=== PATIENT | male | born 1970 | race Caucasian/White ===

== ENCOUNTER 2017-04-17 18:13 | Emergency (ER) | payer BC ==
[~2017-04-17] VITALS: Ht 190.5 cm; Wt 108.0 kg
[~2017-04-17 18:13] MED LIST: LOVA20TA PO; LURA40 PO; METF1000 PO; OMEP20TA93 PO; TRAZ1TAB14 PO
[2017-04-17 18:34] VITALS: BP 116/62; PULSE 56; RESP 17; TEMP 98.8; O2SAT 95
--- NOTE | 2017-04-17 19:51 | PD ---
HPI Chief Complaint: Psychiatric Symptoms Time Seen by Provider: 19:49 Travel History International Travel<30 days: No Contact w/Intl Traveler<30days: No Traveled to known affect area: No History of Present Illness HPI 46-year-old male presents to emergency department as a transfer from [facility] under Shine act for psychological evaluation. The patient admits to feeling depressed and suicidal. His attempted overdose. The patient here has no medical complaints now. PFSH Past Medical History Asthma: No Bipolar Disorder: Yes Depression: Yes COPD: No Diabetes: Yes (TYPE 1) Respiratory: No Immunizations Current: Yes ?: Not Past Surgical History Appendectomy: Yes Social History Alcohol Use: Yes (OCC) Tobacco Use: Yes (1 PPD) Substance Use: Yes (USED CRACK YESTERDAY) Allergies-Medications (Allergen,Severity, Reaction): Coded Allergies: No Known Allergies (Verified Allergy, Mild, 04/17/17) Reported Meds & Prescriptions Reported Meds & Active Scripts Active Reported Lovastatin 20 Mg Tab 20 Mg PO DAILY Omeprazole 20 Mg Tab 20 Mg PO DAILY Latuda (Lurasidone) 40 Mg Tab 40 Mg PO DAILY Trazodone (Trazodone HCl) 150 Mg Tablet 150 Mg PO HS Metformin (Metformin HCl) 1,000 Mg Tab 1,000 Mg PO DAILY With a meal Review of Systems General / Constitutional: No: Fever Eyes: No: Visual changes HENT: No: Headaches Cardiovascular: No: Chest Pain or Discomfort Respiratory: No: Shortness of Breath Gastrointestinal: No: Abdominal Pain Genitourinary: No: Dysuria Musculoskeletal: No: Pain Skin: No Rash Neurologic: No: Weakness Psychiatric: Positive: Depression, Suicidal Ideations, Mood Disorder, Substance Abuse, No: Anxiety, Disorder of Thought, Homicidal Ideation Endocrine: No: Polydipsia Hematologic/Lymphatic: No: Easy Bruising Physical Exam Narrative GENERAL: Well-nourished, well-developed patient. Patient is resting comfortable in examination room. SKIN: Warm and dry. HEAD: Normocephalic and atraumatic. EYES: No scleral icterus. No injection or drainage. ENT: No nasal drainage noted. Mucous membranes pink. Airway patent. NECK: Supple, trachea midline. Moves head freely without obvious discomfort. CARDIOVASCULAR: Regular rate and rhythm without murmurs, gallops, or rubs. RESPIRATORY: Breath sounds equal bilaterally. No accessory muscle use. GASTROINTESTINAL: Abdomen soft, non-tender, nondistended. EXTREMITIES: No cyanosis or edema. BACK: Nontender without obvious deformity. No CVA tenderness. NEURO: Patient is alert and oriented. no sensorimotor deficits. Nonfocal. Normal speech. PSYCH: No delusions. No auditory or visual hallucinations. Data Data Last Documented VS Vital Signs Date Time Temp Pulse Resp B/P (MAP) Pulse Ox O2 Delivery O2 Flow Rate FiO2 04/17/17 18:34 98.8 56 17 116/62 (80) 95 Orders Orders Psych Screen (04/17/17 19:37) MDM Medical Decision Making Medical Screen Exam Complete: Yes Emergency Medical Condition: Yes Medical Record Reviewed: Yes Interpretation(s) Patient's laboratory tests have been reviewed Differential Diagnosis MDM: High Differential diagnoses: Schizophrenia, schizoaffective disorder, bipolar, anxiety, depression, adjustment reaction, mood disorder NOS, ODD, depressive disorder NOS, dementia, dementia with agitation, psychosis NOS, substance induced mood disorder, DMDD, Asperger syndrome, infection,electrolyte abnormality, malingering. Narrative Course Mental health screening discussed with the patient. Psychiatric screen ordered. The patient's medically cleared. This is medical clearance for psychiatric admission Diagnosis Primary Impression: Medical clearance for psychiatric admission Condition: Stable Yair Leary Apr 17, 2017 19:51
[2017-04-18 06:18] VITALS: BP 113/57; PULSE 73; RESP 18; O2SAT 97
--- NOTE | 2017-04-18 11:41 | PD ---
History of Present Illness Chief Complaint: Psychiatric Symptoms Time Seen by Provider: 11:20 Travel History International Travel<30 Days: No Contact w/Intl Traveler<30days: No Known affected area: No Legal Status Legal Status: Shine Act Shine Act Signed By: DR. BERNA MD [facility] [id number] Shine Act Comment: 04/17/2017 2644 History of Present Illness: History of Present Illness HPI 46-year-old , , male with history of depression, remote hx of substance use who presents to emergency department as a transfer from [facility] under Shine act. The patient had a relapse and used cocaine, alcohol and marijuana and later felt increased depressed and attempted to overdose on his prescribed medication in front of his . She took the pills out of his hand. The patient admits to feeling increasingly depressed over the past week coinciding with his relapse and use of substances. He also reports increase of stressors including that his son, his daughter in law and their six year old child has been staying with them. No other stressors are identified. He has one previous suicide attempt by overdose approximately ten years ago. Patient is alert, oriented. He is calm and cooperative. Speech is clear. There is no indication of psychosis, no chapo. Reports he is sleeping well, has good appetite, inadequate level of energy. Patient acknowledges recent relapse and the effects of the of the use of cocaine. He denies current suicidal or homicidal ideation, intent, or plan. He has seen a therapist and plans on making an appointment if he were discharged from the emergency department. He reports medication compliance. Telephone call to patient's Soila at [phone].. She is aware of her 's recent relapse and use of both cocaine as well as alcohol. She has no concerns if he were to be discharged and will pick him up. PFSH Past Medical History Asthma: No Bipolar Disorder: Yes Depression: Yes COPD: No Diabetes: Yes (TYPE 1) Respiratory: No Immunizations Current: Yes ?: Not Past Surgical History Appendectomy: Yes Psychiatric History Psychiatric History Hx Psychiatric Treatment: Patient with a hx of depression. One previous sucide attempt in [address] Steven as outpatietn provider. Also sees a therapist on a consistent basis for the last 2 years. History of Inpatient Treatment: Yes (last psychiatric hospitalization in 2003) Guns or firearms in home: No Social History Born and raised in [place]. Move to [place] in 1997. He is and lives with his all 25-year-old son, the son is and their 6-year-old child. 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 Hx Alcohol Use: Yes (OCC) Hx Tobacco Use: Yes (1 PPD) Hx Substance Use: Yes (crack) Substance Use Type: Marijuana, Nicotine/Cigarettes, Cocaine Other Substances Used: occ. alcohol, 1 ppd Hx of Substance Use Treatment: No Family Psychiatric History Negative Allergies-Medications (Allergen,Severity, Reaction): Coded Allergies: No Known Allergies (Verified Allergy, Mild, 04/17/17) Reported Meds & Prescriptions Reported Meds & Active Scripts Active Reported Lovastatin 20 Mg Tab 20 Mg PO DAILY Omeprazole 20 Mg Tab 20 Mg PO DAILY Latuda (Lurasidone) 40 Mg Tab 40 Mg PO DAILY Trazodone (Trazodone HCl) 150 Mg Tablet 150 Mg PO HS Metformin (Metformin HCl) 1,000 Mg Tab 1,000 Mg PO DAILY With a meal Review of Systems Psychiatric: COMPLAINS OF: Depression Except as stated in HPI: all other systems reviewed are Neg Mental Status Examination Appearance: Appropriate Consciousness: Alert Orientation: x4 Motor Activity: Normal gait Speech: Unremarkable Language: Adequate Fund of Knowledge: Adequate Attention and Concentration: Adequate Memory: Unremarkable Mood: Appropriate Affect: Appropriate Thought Process & Associations: Intact, Logical, Goal directed Thought Content: Appropriate Hallucination Type: None Delusion Type: None Suicidal Ideation: No Suicidal Plan: No Suicidal Intention: No Homicidal Ideation: No Homicidal Plan: No Homicidal Intention: No Insight: Adequate Judgment: Adequate [facility] Medical Decision Making Medical Record Reviewed: Yes Assessment/Plan 46-year-old male with history of depression, remote hx of substance use who presents to emergency department as a transfer from [facility] under Shine act for psychological evaluation. The patient had a relapse and used cocaine, alcohol and marijuana and later felt increased depressed and attempted to overdose on his prescribed medication in front of his . She took the pills out of his hand. The patient admits to feeling increasingly depressed over the past week coinciding with his use of substances. He also reports increase of stressors including that his son, his daughter in law and their six year old child has been staying with them. No other stressors are identified. He has one previous suicide attempt by overdose in 2003. Patient was monitored in secure environment and he presented no behavioral dysregulation and no suicidality. Patient does not meet criteria for shine act. He is future oriented and has adequate protective factors. He will follow up with his therapist as well as with Dr. Steven on outpatient basis. He is cognitively intact. Contracts for safety. Psychiatrically clear for discharge. Orders Orders Psych Screen (04/17/17 19:37) Diet Regular Basic (04/18/17 Breakfast) Diet Regular Basic (04/18/17 Lunch) Results Vital Signs Date Time Temp Pulse Resp B/P (MAP) Pulse Ox O2 Delivery O2 Flow Rate FiO2 04/18/17 06:18 73 18 113/57 (75) 97 04/17/17 18:34 98.8 56 17 116/62 (80) 95 Diagnosis Primary Impression: Major depressive disorder Psychiatrically Cleared: Yes Med/ Other Pt Specific Info: No Change to Meds Disposition: 01 DISCHARGE HOME Condition: Stable Problem Qualifiers Primary Impression: Major depressive disorder Qualified Codes: F33.0 - Major depressive disorder, recurrent, mild Sherrell Fagan Apr 18, 2017 11:41
--- NOTE | 2017-04-18 13:40 | PD ---
Physical Exam Date Seen by Provider: Apr 18, 2017 Time Seen by Provider: 15:16 Narrative 46-year-old male patient presents emergency department under a Shine act. Patient was cleared medically and psychiatrically from our facility. I was asked to disposition the patient. Data Data Last Documented VS Vital Signs Date Time Temp Pulse Resp B/P (MAP) Pulse Ox O2 Delivery O2 Flow Rate FiO2 04/18/17 13:47 04/18/17 06:18 73 18 97 04/17/17 18:34 98.8 Orders Orders Psych Screen (04/17/17 19:37) Diet Regular Basic (04/18/17 Breakfast) Ed Discharge Order (04/18/17 13:41) MDM Supervised Visit with MILTON: Yes Differential Diagnosis Depression versus suicidal ideation versus anxiety versus adjustment disorder versus mood disorder versus bipolar disorder versus schizophrenia versus paranoid disorder versus psychosis versus substance abuse versus alcohol abuse versus alcohol induced psychosis versus homicidality addition versus cutting versus personality disorderl Narrative Course 46-year-old male patient presents emergency room for evaluation under a Shine act. The patient was medically and psychiatrically cleared for discharge. I was asked to disposition the patient. Patient denies any homicidal or suicidal ideation at this time. Patient denies any physiological point this time. Patient be discharged home with his . Diagnosis Primary Impression: Major depressive disorder Qualified Codes: F33.0 - Major depressive disorder, recurrent, mild Referrals: [facility] (Out patient) Primary Care Physician Patient Instructions: Depression (ED), General Instructions Disposition: 01 DISCHARGE HOME Condition: Stable ChidiMerlyn jara Hawa JEFFRIES Apr 18, 2017 13:40
== END 2017-04-18 13:57 | disposition home or self-care (01) ==
LOC: NEPJ 18:13
DX: F32.9 Major depressive disorder, single episode, unspecified (principal); F31.9 Bipolar disorder, unspecified; E10.9 Type 1 diabetes mellitus without complications; F17.200 Nicotine dependence, unspecified, uncomplicated; Z79.899 Other long term (current) drug therapy
CPT/HCPCS: 80048; 80307; 99283; 99285